=== PATIENT | male | born 1930 | race Caucasian/White ===

== ENCOUNTER 2017-09-18 12:34 | Inpatient (IN) | payer MEDICARE, BC ==
[2017-09-18] VITALS (7 sets, daily range): BP systolic 141–181; BP diastolic 65–82; PULSE 60–78; RESP 16–18; TEMP 98–98.8; O2SAT 96–99
[~2017-09-18] VITALS: Ht 170.2 cm; Wt 75.8 kg
[~2017-09-18 12:34] MED LIST: BISA10SU3 RECTAL; CLON0.2T PO; SENN8.8L PO
--- NOTE | 2017-09-18 12:58 | PD ---
HPI Chief Complaint: Fall Time Seen by Provider: 12:51 Travel History International Travel<30 days: No Contact w/Intl Traveler<30days: No Traveled to known affect area: No History of Present Illness HPI 86-year-old male with no significant medical history presents to emergency department following a fall that occurred today. Patient states that he was moving a chair when he stood up, he felt "in the clouds." He ended up falling backwards, striking his head. He states he did not lose consciousness. He is reporting posterior head pain where he sustained a laceration. He denies any other acute focal deficits or weakness. Denies any chest pain or tightness. No difficulty breathing. No recent illnesses, fever, or chills. He has no other symptoms to report. 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) Genitourinary Surgery: Yes (PROSTATE BIOPSY) Gynecologic Surgery: No Oral Surgery: Yes (TEETH REMOVAL) Thoracic Surgery: No Social History Alcohol Use: No Tobacco Use: No Substance Use: No Allergies-Medications (Allergen,Severity, Reaction): Coded Allergies: No Known Allergies (Unverified , 06/14/16) Reported Meds & Prescriptions Reported Meds & Active Scripts Active Zantac (Ranitidine HCl) 150 Mg/10 Ml Syrp 150 Mg PO Q12HR 30 Days Reported Acetaminophen 325 Mg Tab 650 Mg PO Q4H PRN 30 Days Bisacodyl Supp (Bisacodyl) 10 Mg Supp 10 Mg RECTAL DAILY PRN 30 Days Clonidine (Clonidine HCl) 0.2 Mg Tab 0.2 Mg PO Q6HR 30 Days Senexon Liq (Sennosides) 8.8 Mg/5 Ml Liq 8.8 Mg PO Q12HR 3 Days Review of Systems Except as stated in HPI: all other systems reviewed are Neg Physical Exam Narrative GENERAL: Well-nourished elderly male patient, sitting up in bed, in no acute distress SKIN: Focused skin assessment warm/dry. 4 cm well approximated laceration on the superior posterior scalp. Bleeding is controlled. HEAD: Atraumatic. Normocephalic. EYES: Pupils equal and round. No scleral icterus. No injection or drainage. EOMI ENT: No nasal bleeding or discharge. Mucous membranes pink and moist. NECK: Trachea midline. No JVD. No cervical spine tenderness to palpation. CARDIOVASCULAR: Regular rate and rhythm. RESPIRATORY: No accessory muscle use. Clear to auscultation. Breath sounds equal bilaterally. GASTROINTESTINAL: Abdomen soft, non-tender, nondistended. Hepatic and splenic margins not palpable. MUSCULOSKELETAL: No obvious deformities. No clubbing. No cyanosis. No edema. Equal strength bilateral extremities. No pronator drift. Sensation intact distal affected extremities. NEUROLOGICAL: Awake and alert. No obvious cranial nerve deficits. Motor grossly within normal limits. Normal speech. PSYCHIATRIC: Appropriate mood and affect; insight and judgment normal. Data Data Last Documented VS Vital Signs Date Time Temp Pulse Resp B/P (MAP) Pulse Ox O2 Delivery O2 Flow Rate FiO2 09/18/17 12:39 98.8 70 16 141/77 (98) 99 Orders Orders Electrocardiogram (09/18/17 12:59) Basic Metabolic Panel (Bmp) (09/18/17 12:59) Complete Blood Count With Diff (09/18/17 12:59) Ckmb (Isoenzyme) Profile (09/18/17 12:59) Troponin I (09/18/17 12:59) Act Partial Throm Time (Ptt) (09/18/17 12:59) Prothrombin Time / Inr (Pt) (09/18/17 12:59) Urinalysis - C+S If Indicated (09/18/17 12:59) Ct Brain W/O Iv Contrast(Rout) (09/18/17 12:59) Ct Cerv Spine W/O Contrast (09/18/17 12:59) Ecg Monitoring (09/18/17 12:59) Iv Access Insert/Monitor (09/18/17 12:59) Oximetry (09/18/17 12:59) Sodium Chloride 0.9% Flush (Ns Flush) (09/18/17 13:00) Sodium Chlor 0.9% 1000 Ml Inj (Ns 1000 M (09/18/17 12:59) Admit Order (Ed Use Only) (09/18/17 15:41) Consult Neurosurgery (09/18/17 ) Labs Laboratory Tests Test 09/18/17 13:20 09/18/17 14:00 White Blood Count 9.6 TH/MM3 Red Blood Count 4.02 MIL/MM3 Hemoglobin 13.2 GM/DL Hematocrit 39.4 % Mean Corpuscular Volume 98.2 FL Mean Corpuscular Hemoglobin 32.8 PG Mean Corpuscular Hemoglobin Concent 33.5 % Red Cell Distribution Width 18.7 % Platelet Count 811 TH/MM3 Mean Platelet Volume 8.3 FL Neutrophils (%) (Auto) 61.9 % Lymphocytes (%) (Auto) 25.2 % Monocytes (%) (Auto) 8.2 % Eosinophils (%) (Auto) 4.2 % Basophils (%) (Auto) 0.5 % Neutrophils # (Auto) 6.0 TH/MM3 Lymphocytes # (Auto) 2.4 TH/MM3 Monocytes # (Auto) 0.8 TH/MM3 Eosinophils # (Auto) 0.4 TH/MM3 Basophils # (Auto) 0.0 TH/MM3 CBC Comment DIFF FINAL Differential Comment Prothrombin Time 11.0 SEC Prothromb Time International Ratio 1.1 RATIO Activated Partial Thromboplast Time 25.1 SEC Blood Urea Nitrogen 12 MG/DL Creatinine 0.86 MG/DL Random Glucose 85 MG/DL Calcium Level 9.1 MG/DL Sodium Level 140 MEQ/L Potassium Level 4.0 MEQ/L Chloride Level 102 MEQ/L Carbon Dioxide Level 32.8 MEQ/L Anion Gap 5 MEQ/L Estimat Glomerular Filtration Rate 84 ML/MIN Total Creatine Kinase 43 U/L Troponin I LESS THAN 0.02 NG/ML Urine Color LIGHT-YELLOW Urine Turbidity CLEAR Urine pH 8.0 Urine Specific [place] 1.007 Urine Protein NEG mg/dL Urine Glucose (UA) NEG mg/dL Urine Ketones NEG mg/dL Urine Occult Blood NEG Urine Nitrite NEG Urine Bilirubin NEG Urine Urobilinogen LESS THAN 2.0 MG/DL Urine Leukocyte Esterase NEG Urine RBC LESS THAN 1 /hpf Urine WBC LESS THAN 1 /hpf Urine Mucus FEW /lpf Microscopic Urinalysis Comment CULT NOT INDICATED MDM Medical Decision Making Medical Screen Exam Complete: Yes Emergency Medical Condition: Yes Medical Record Reviewed: Yes Differential Diagnosis Syncope versus near syncope versus orthostatic hypotension versus head laceration versus abrasion versus intracranial hemorrhage Narrative Course 86-year-old male presents to the emergency department for evaluation following a fall. Patient appears without distress. He is a and O 3. He has no focal deficits or weakness. Patient does not want any pain medication at this time. Laboratory Tests Test 09/18/17 13:20 09/18/17 14:00 White Blood Count 9.6 TH/MM3 Red Blood Count 4.02 MIL/MM3 Hemoglobin 13.2 GM/DL Hematocrit 39.4 % Mean Corpuscular Volume 98.2 FL Mean Corpuscular Hemoglobin 32.8 PG Mean Corpuscular Hemoglobin Concent 33.5 % Red Cell Distribution Width 18.7 % Platelet Count 811 TH/MM3 Mean Platelet Volume 8.3 FL Neutrophils (%) (Auto) 61.9 % Lymphocytes (%) (Auto) 25.2 % Monocytes (%) (Auto) 8.2 % Eosinophils (%) (Auto) 4.2 % Basophils (%) (Auto) 0.5 % Neutrophils # (Auto) 6.0 TH/MM3 Lymphocytes # (Auto) 2.4 TH/MM3 Monocytes # (Auto) 0.8 TH/MM3 Eosinophils # (Auto) 0.4 TH/MM3 Basophils # (Auto) 0.0 TH/MM3 CBC Comment DIFF FINAL Differential Comment Prothrombin Time 11.0 SEC Prothromb Time International Ratio 1.1 RATIO Activated Partial Thromboplast Time 25.1 SEC Blood Urea Nitrogen 12 MG/DL Creatinine 0.86 MG/DL Random Glucose 85 MG/DL Calcium Level 9.1 MG/DL Sodium Level 140 MEQ/L Potassium Level 4.0 MEQ/L Chloride Level 102 MEQ/L Carbon Dioxide Level 32.8 MEQ/L Anion Gap 5 MEQ/L Estimat Glomerular Filtration Rate 84 ML/MIN Total Creatine Kinase 43 U/L Troponin I LESS THAN 0.02 NG/ML Urine Color LIGHT-YELLOW Urine Turbidity CLEAR Urine pH 8.0 Urine Specific [place] 1.007 Urine Protein NEG mg/dL Urine Glucose (UA) NEG mg/dL Urine Ketones NEG mg/dL Urine Occult Blood NEG Urine Nitrite NEG Urine Bilirubin NEG Urine Urobilinogen LESS THAN 2.0 MG/DL Urine Leukocyte Esterase NEG Urine RBC LESS THAN 1 /hpf Urine WBC LESS THAN 1 /hpf Urine Mucus FEW /lpf Microscopic Urinalysis Comment CULT NOT INDICATED Vital Signs Date Time Temp Pulse Resp B/P (MAP) Pulse Ox O2 Delivery O2 Flow Rate FiO2 09/18/17 12:39 98.8 70 16 141/77 (78) [address] 09/18/17 1259 Signed Impressions: Service Date/Time: Monday, September 18, 2017 14:23 - CONCLUSION: 1. There appears to be a tiny punctate hemorrhagic contusion high along the left cerebral vertex. 2. Diffuse bilateral cortical atrophy and chronic white matter changes. Guero Carrillo MD Cervical Spine CT 09/18/17 1259 Signed Impressions: Service Date/Time: Monday, September 18, 2017 14:24 - CONCLUSION: 1. No acute bony fracture. 2. Stable CT scan of the cervical spine compared to the prior examination. Guero Carrillo MD I have discussed the findings with my attending as well as the patient and his son who is at bedside. A call has been placed in neurosurgery. Laceration is repaired without difficulty. Procedures Procedure Narrative LACERATION LOCATION: Posterior scalp LENGTH: 3 cm NUMBER OF STITCHES/ROSSANA: 3 rossana REPAIR: The area of the laceration was prepped with Betadine and sterilely draped. The wound was copiously irrigated and explored without evidence of foreign body, tendon injury or neurovascular injury. The wound was closed using rossana. This was a single layer repair. A sterile dressing was applied. The patient was advised to keep the dressing clean and dry. Patient tolerated the procedure well. Diagnosis Primary Impression: Near syncope Additional Impression: ICH (intracerebral hemorrhage) Qualified Codes: S06.360A - Traumatic hemorrhage of cerebrum, unspecified, without loss of consciousness, initial encounter Admitting Information Admitting Physician Requests: Admit Condition: Stable Brenda De La O HECTOR Sep 18, 2017 12:58
[2017-09-18] MEDS ORDERED: SODIUM CHLOR 0.9% 1000 ML INJ 1,000 ML IV ONE (12:59)
[2017-09-18] MEDS ORDERED: SODIUM CHLORIDE 0.9% FLUSH 10 ML FLUSH IVF PRN (13:00)
[2017-09-18 13:39] LABS: BASOPHIL % 0.5 % (0.0-2.0); EOSINOPHIL # 0.4 TH/MM3 (0-0.4); EOSINOPHIL % 4.2 % (0.0-4.0); HEMATOCRIT 39.4 % (39.0-51.0); HEMO FLAGS DIFF FINAL; LYMPH % 25.2 % (9.0-44.0); LYMPHOCYTE # 2.4 TH/MM3 (1.0-4.8); MEAN CELL VOLUME 98.2 FL (80.0-100.0); MEAN CORPUSCULAR HEMOGLOBIN 32.8 PG (27.0-34.0); MEAN CORPUSCULAR HGB CONC 33.5 % (32.0-36.0); MONO % 8.2 % (0.0-8.0); NEUT % 61.9 % (16.0-70.0); PLATELET COUNT 811 TH/MM3 (150-450); RED BLOOD COUNT 4.02 MIL/MM3 (4.50-5.90); RED CELL DISTRIBUTION WIDTH 18.7 % (11.6-17.2); WHITE BLOOD COUNT 9.6 TH/MM3 (4.0-11.0)
[2017-09-18 13:53] LABS: APTT (PATIENT) 25.1 SEC (24.3-30.1); INTERNATIONAL NORMALIZED RATIO 1.1 RATIO
[2017-09-18 13:55] LABS: ANION GAP 5 MEQ/L (5-15); BICARBONATE 32.8 MEQ/L (21.0-32.0); BLOOD UREA NITROGEN 12 MG/DL (7-18); CHLORIDE 102 MEQ/L (98-107); GLOMERULAR FILTRATION RATE 84 ML/MIN (>89); SODIUM (NA) 140 MEQ/L (136-145)
[2017-09-18 14:00] LABS: CREATINE KINASE 43 U/L (39-308)
[2017-09-18 14:25] LABS: BLOOD, URINE NEG (NEG); COMMENT (UR) CULT NOT INDICATED; CULTURE IF INDICATED CULT NOT INDICATED; GLUCOSE,URINE NEG (NEG); KETONE, URINE NEG (NEG); MUCUS URINE FEW /lpf (OCC); NITRITE,URINE NEG (NEG); URINE COLOR LIGHT-YELLOW (YELLW/STRAW)
--- NOTE | 2017-09-18 14:58 | RADRPT ---
EXAM DATE/TIME: 09/18/2017 14:23 [facility] COMPARISON: CT BRAIN W/O CONTRAST, June 15, 2016, 4:39. INDICATIONS : Trauma, fall. Laceration to posterior head. RADIATION DOSE: 56.35 CTDIvol (mGy) MEDICAL HISTORY : None SURGICAL HISTORY : Craniotomy. ENCOUNTER: Initial ACUITY: 1 day PAIN SCALE: 0/10 LOCATION: Bilateral head TECHNIQUE: Multiple contiguous axial images were obtained of the head. Using automated exposure control and adj ustment of the mA and/or kV according to patient size, radiation dose was kept as low as reasonably a chievable to obtain optimal diagnostic quality images. DICOM format image data is available electro nically for review and comparison. FINDINGS: CEREBRUM: There appears to be a tiny punctate hemorrhagic contusion high along the left cerebral vertex. There is bilateral cortical atrophy and chronic white matter changes bilaterally. The ventricles are within normal limits for size. There is no mass effect or midline shift. POSTERIOR FOSSA: The cerebellum and brainstem are intact. The 4th ventricle is midline. The cerebellopontine angle i s unremarkable. EXTRACRANIAL: The visualized portion of the orbits is intact. There is scalp soft tissue swelling over the posterio r right occipital region. SKULL: The calvaria is intact. No evidence of skull fracture. There is evidence of previous left-sided cran iotomy. CONCLUSION: 1. There appears to be a tiny punctate hemorrhagic contusion high along the left cerebral vertex. 2. Diffuse bilateral cortical atrophy and chronic white matter changes. Guero Carrillo MD on September 18, 2017 at 14:53 Board Certified Radiologist. This report was verified electronically.
--- NOTE | 2017-09-18 15:08 | RADRPT ---
EXAM DATE/TIME: 09/18/2017 14:24 [facility] COMPARISON: CT CERVICAL SPINE W/O CONTRAST, June 14, 2016, 10:41. INDICATIONS : Trauma, fall today. Laceration to posterior head. RADIATION DOSE: 35.06 CTDIvol (mGy) MEDICAL HISTORY : None SURGICAL HISTORY : Craniotomy. ENCOUNTER: Initial ACUITY: 1 day PAIN SCALE: 0/10 LOCATION: Bilateral neck TECHNIQUE: Volumetric scanning of the cervical spine was performed. Multiplanar reconstructions in the sagittal, coronal and oblique axial planes were performed. Using automated exposure control and adjustment o f the mA and/or kV according to patient size, radiation dose was kept as low as reasonably achievable to obtain optimal diagnostic quality images. DICOM format image data is available electronically f or review and comparison. FINDINGS: Today's exam is compared to the prior study. The bony structures are grossly intact. No acute bony fr acture. There is stable primary degenerative changes throughout the cervical spine. No evidence of galvez bluxation or spondylolisthesis. There's been no significant changes with the overall appearance hannah red to prior exam. There is a mild central bulging at C4-5. Otherwise, no significant ventral defects are seen. CONCLUSION: 1. No acute bony fracture. 2. Stable CT scan of the cervical spine compared to the prior examination. Guero Carrillo MD on September 18, 2017 at 15:04 Board Certified Radiologist. This report was verified electronically.
--- NOTE | 2017-09-18 15:17 | PD ---
Data Data Last Documented VS Vital Signs Date Time Temp Pulse Resp B/P (MAP) Pulse Ox O2 Delivery O2 Flow Rate FiO2 09/18/17 12:39 98.8 70 16 141/77 (98) 99 Orders Orders Electrocardiogram (09/18/17 12:59) Basic Metabolic Panel (Bmp) (09/18/17 12:59) Complete Blood Count With Diff (09/18/17 12:59) Ckmb (Isoenzyme) Profile (09/18/17 12:59) Troponin I (09/18/17 12:59) Act Partial Throm Time (Ptt) (09/18/17 12:59) Prothrombin Time / Inr (Pt) (09/18/17 12:59) Urinalysis - C+S If Indicated (09/18/17 12:59) Ct Brain W/O Iv Contrast(Rout) (09/18/17 12:59) Ct Cerv Spine W/O Contrast (09/18/17 12:59) Ecg Monitoring (09/18/17 12:59) Iv Access Insert/Monitor (09/18/17 12:59) Oximetry (09/18/17 12:59) Sodium Chloride 0.9% Flush (Ns Flush) (09/18/17 13:00) Sodium Chlor 0.9% 1000 Ml Inj (Ns 1000 M (09/18/17 12:59) Admit Order (Ed Use Only) (09/18/17 15:41) Consult Neurosurgery (09/18/17 ) Labs Laboratory Tests Test 09/18/17 13:20 09/18/17 14:00 White Blood Count 9.6 TH/MM3 Red Blood Count 4.02 MIL/MM3 Hemoglobin 13.2 GM/DL Hematocrit 39.4 % Mean Corpuscular Volume 98.2 FL Mean Corpuscular Hemoglobin 32.8 PG Mean Corpuscular Hemoglobin Concent 33.5 % Red Cell Distribution Width 18.7 % Platelet Count 811 TH/MM3 Mean Platelet Volume 8.3 FL Neutrophils (%) (Auto) 61.9 % Lymphocytes (%) (Auto) 25.2 % Monocytes (%) (Auto) 8.2 % Eosinophils (%) (Auto) 4.2 % Basophils (%) (Auto) 0.5 % Neutrophils # (Auto) 6.0 TH/MM3 Lymphocytes # (Auto) 2.4 TH/MM3 Monocytes # (Auto) 0.8 TH/MM3 Eosinophils # (Auto) 0.4 TH/MM3 Basophils # (Auto) 0.0 TH/MM3 CBC Comment DIFF FINAL Differential Comment Prothrombin Time 11.0 SEC Prothromb Time International Ratio 1.1 RATIO Activated Partial Thromboplast Time 25.1 SEC Blood Urea Nitrogen 12 MG/DL Creatinine 0.86 MG/DL Random Glucose 85 MG/DL Calcium Level 9.1 MG/DL Sodium Level 140 MEQ/L Potassium Level 4.0 MEQ/L Chloride Level 102 MEQ/L Carbon Dioxide Level 32.8 MEQ/L Anion Gap 5 MEQ/L Estimat Glomerular Filtration Rate 84 ML/MIN Total Creatine Kinase 43 U/L Troponin I LESS THAN 0.02 NG/ML Urine Color LIGHT-YELLOW Urine Turbidity CLEAR Urine pH 8.0 Urine Specific [place] 1.007 Urine Protein NEG mg/dL Urine Glucose (UA) NEG mg/dL Urine Ketones NEG mg/dL Urine Occult Blood NEG Urine Nitrite NEG Urine Bilirubin NEG Urine Urobilinogen LESS THAN 2.0 MG/DL Urine Leukocyte Esterase NEG Urine RBC LESS THAN 1 /hpf Urine WBC LESS THAN 1 /hpf Urine Mucus FEW /lpf Microscopic Urinalysis Comment CULT NOT INDICATED MDM Medical Record Reviewed: Yes Supervised Visit with KHADIJAH: Yes Narrative Course I, Dr. Martinez, have reviewed the advance practice practitioner's documentation and am in agreement, met with the patient face to face, made the diagnosis, and the medical decision making was done by me. *My assessment and Findings: CBC & BMP Diagram 09/18/17 13:20 Calcium Level 9.[address] 09/18/17 1259 Signed Impressions: Service Date/Time: Monday, September 18, 2017 14:23 - CONCLUSION: 1. There appears to be a tiny punctate hemorrhagic contusion high along the left cerebral vertex. 2. Diffuse bilateral cortical atrophy and chronic white matter changes. Guero Carrillo MD Cervical Spine CT 09/18/17 1259 Signed Impressions: Service Date/Time: Monday, September 18, 2017 14:24 - CONCLUSION: 1. No acute bony fracture. 2. Stable CT scan of the cervical spine compared to the prior examination. Guero Carrillo MD Case discussed with Dr. Cortez of neurosurgery Pt will be admitted to [facility] for monitoring with plan for repeat head CT tomorrow Scripts No Active Prescriptions or Reported Meds Condition: Stable Elan Martinez MD Sep 18, 2017 15:17
[2017-09-18] MEDS ORDERED: ACETAMINOPHEN 325 MG TAB PO PRN (15:45)
[2017-09-18] MEDS ORDERED: POTASSIUM CHLOR 20 MEQ PREMIX 100 ML IV PRN ×2 (15:45)
[2017-09-18] MEDS ORDERED: MISCELLANEOUS NURSING INFORMATION XX SCH (15:45)
[2017-09-18] MEDS ORDERED: MAGNESIUM OXIDE 400 MG TAB PO PRN (15:45)
[2017-09-18] MEDS ORDERED: MAGNESIUM SULFATE INJ 4 GM in SODIUM CHLORIDE 0.9% INJ 92 ML IV PRN (15:45)
[2017-09-18] MEDS ORDERED: MAGNESIUM SULFATE INJ 2 GM in SODIUM CHLORIDE 0.9% INJ 96 ML IV PRN (15:45)
[2017-09-18] MEDS ORDERED: hydrALAZINE HCL 20 MG/ML VIAL IV PUSH PRN (15:45)
[2017-09-18] MEDS ORDERED: POTASSIUM PHOSPHATE INJ 30 MMOL in SODIUM CHLOR 0.9% 250 ML INJ 250 ML IV PRN (15:45)
[2017-09-18] MEDS ORDERED: SODIUM PHOSPHATE INJ 30 MMOL in SODIUM CHLOR 0.9% 250 ML INJ 240 ML IV PRN (15:45)
[2017-09-18] MEDS ORDERED: CHLORHEXIDINE GLUCONATE 2 % 1 PACK (2 CLOTHS) TOP PRN (15:45)
[2017-09-18] MEDS ORDERED: RESP: ALBUTEROL 2.5 MG/IPRATROPIUM 0.5 MG NEB (PRN) INH (15:45)
[2017-09-18] MEDS ORDERED: ONDANSETRON HCL 4 MG/2 ML VIAL IV PUSH PRN (15:45)
[2017-09-18] MEDS ORDERED: LABETALOL HCL 100 MG/20 ML VIAL IV PUSH PRN (15:45)
[2017-09-18] MEDS ORDERED: DEXTROSE 50% IN WATER 50 ML VIAL(D50) IV PUSH PRN (15:45)
[2017-09-18] MEDS ORDERED: POTASSIUM CHLOR 40 MEQ PREMIX 100 ML IV PRN ×2 (15:45)
[2017-09-18] MEDS ORDERED: POTASSIUM PHOSPHATE MONOBASIC 500 MG TAB PO/TUBE PRN (15:45)
[2017-09-18] MEDS ORDERED: POTASSIUM PHOSPHATE MONOBASIC 500 MG TAB PO PRN (15:45)
--- NOTE | 2017-09-18 16:01 | HHI.HP ---
[facility] Service Critical Care Medicine Primary Care Physician Unknown Admission Diagnosis Diagnosis: Chief Complaint: headache Travel History International Travel<30 Days: No Contact w/Intl Traveler <30 Da: No Traveled to Known Affected Are: No History of Present Illness This is an 86-year-old male with no significant past medical history who presents after a mechanical fall. He was trying to move his recliner and slipped and fell and hit his head. He denies any symptoms other than headache. He does state that he had a prior brain bleed a year ago for which she was admitted to the ICU. In the emergency department CAT scan of head was notable for a very tiny traumatic intraparenchymal hemorrhage. He is noted to the ICU for close monitoring. The patient denies any symptoms of nausea, vomiting, blurry vision, visual changes, weakness, numbness. His only symptom is headache. Review of systems is otherwise negative. Review of Systems Constitutional: DENIES: Diaphoretic episodes, Fatigue, Fever, Weight gain, Weight loss, Chills, Dizziness, Change in appetite, Night Sweats Endocrine: DENIES: Heat/cold intolerance, Polydipsia, Polyuria, Polyphagia Eyes: DENIES: Blurred vision, Diplopia, Eye inflammation, Eye pain, Vision loss , Photosensitivity, Double Vision Ears, nose, mouth, throat: DENIES: Tinnitus, Hearing loss, Vertigo, Nasal discharge, Oral lesions, Throat pain, Hoarseness, Ear Pain, Running Nose, Epistaxis, Sinus Pain, Toothache, Odynophagia Respiratory: DENIES: Apneas, Cough, Snoring, Wheezing, Hemoptysis, Sputum production, Shortness of breath Cardiovascular: DENIES: Chest pain, Palpitations, Syncope, Dyspnea on Exertion , PND, Lower Extremity Edema, Orthopnea, Claudication Gastrointestinal: DENIES: Abdominal pain, Black stools, Bloody stools, Constipation, Diarrhea, Nausea, Vomiting, Difficulty Swallowing, Anorexia Genitourinary: DENIES: Sexual dysfunction, Urinary frequency, Urinary incontinence, Urgency, Hematuria, Dysuria, Nocturia, Penile Discharge, Testicular Pain, Testicular Swelling Musculoskeletal: DENIES: Joint pain, Muscle aches, Stiffness, Joint Swelling, Back pain, Neck pain Integumentary: DENIES: Abnormal pigmentation, Nail changes, Pruritus, Rash Hematologic/lymphatic: DENIES: Bruising, Lymphadenopathy Immunologic/allergic: DENIES: Eczema, Urticaria Neurologic: COMPLAINS OF: Headache, DENIES: Abnormal gait, Localized weakness, Paresthesias, Seizures, Speech Problems, Tremor, Poor Balance Psychiatric: DENIES: Anxiety, Confusion, Mood changes, Depression, Hallucinations, Agitation, Suicidal Ideation, Homicidal Ideation, Delusions Past Family Social History Allergies: Coded Allergies: No Known Allergies (Unverified , 06/14/16) Past Medical History Arthritis Prior intraparenchymal hemorrhage one year ago Past Surgical History Prostate biopsy Teeth removal Reported Medications Zantac (Ranitidine HCl) 150 Mg/10 Ml Syrp 150 Mg PO Q12HR 30 Days Acetaminophen 325 Mg Tab 650 Mg PO Q4H PRN 30 Days Bisacodyl Supp (Bisacodyl) 10 Mg Supp 10 Mg RECTAL DAILY PRN 30 Days Clonidine (Clonidine HCl) 0.2 Mg Tab 0.2 Mg PO Q6HR 30 Days Senexon Liq (Sennosides) 8.8 Mg/5 Ml Liq 8.8 Mg PO Q12HR 3 Days Active Ordered Medications See MAR Family History reviewed and found to be noncontributory to his acute illness. Social History denies tob, etoh, doa. Physical Exam Vital Signs Vital Signs Date Time Temp Pulse Resp B/P (MAP) Pulse Ox O2 Delivery O2 Flow Rate FiO2 09/18/17 12:39 98.8 70 16 141/77 (98) 99 Physical Exam GENERAL: Elderly male, lying in bed, no acute distress HEENT: Normocephalic. Atraumatic. Pupils equal, round, reactive, conjugate. Mucous membranes are moist NECK: Trachea is midline. There is no JVD. CHEST: Unlabored. Room air. CARDIOVASCULAR: Normal rate, regular rhythm. ABDOMEN: Soft, nontender, nondistended. No guarding. MUSCULOSKELETAL: Pulses 2+. No peripheral edema. NEUROLOGICAL: Resting her. GCS 15. No focal deficits. Musculoskeletal strength 5 out of 5 in all 4 extremities. Sensation grossly intact Laboratory Laboratory Tests Test 09/18/17 13:20 09/18/17 14:00 White Blood Count 9.6 Red Blood Count 4.02 Hemoglobin 13.2 Hematocrit 39.4 Mean Corpuscular Volume 98.2 Mean Corpuscular Hemoglobin 32.8 Mean Corpuscular Hemoglobin Concent 33.5 Red Cell Distribution Width 18.7 Platelet Count 811 Mean Platelet Volume 8.3 Neutrophils (%) (Auto) 61.9 Lymphocytes (%) (Auto) 25.2 Monocytes (%) (Auto) 8.2 Eosinophils (%) (Auto) 4.2 Basophils (%) (Auto) 0.5 Neutrophils # (Auto) 6.0 Lymphocytes # (Auto) 2.4 Monocytes # (Auto) 0.8 Eosinophils # (Auto) 0.4 Basophils # (Auto) 0.0 CBC Comment DIFF FINAL Differential Comment Prothrombin Time 11.0 Prothromb Time International Ratio 1.1 Activated Partial Thromboplast Time 25.1 Blood Urea Nitrogen 12 Creatinine 0.86 Random Glucose 85 Calcium Level 9.1 Sodium Level 140 Potassium Level 4.0 Chloride Level 102 Carbon Dioxide Level 32.8 Anion Gap 5 Estimat Glomerular Filtration Rate 84 Total Creatine Kinase 43 Troponin I LESS THAN 0.02 Urine Color LIGHT-YELLOW Urine Turbidity CLEAR Urine pH 8.0 Urine Specific [place] 1.007 Urine Protein NEG Urine Glucose (UA) NEG Urine Ketones NEG Urine Occult Blood NEG Urine Nitrite NEG Urine Bilirubin NEG Urine Urobilinogen LESS THAN 2.0 Urine Leukocyte Esterase NEG Urine RBC LESS THAN 1 Urine WBC LESS THAN 1 Urine Mucus FEW Microscopic Urinalysis Comment CULT NOT INDICATED Result Diagram: 09/18/17 1320 09/18/17 1320 Imaging Last Impressions Head CT 09/18/17 1259 Signed Impressions: Service Date/Time: Monday, September 18, 2017 14:23 - CONCLUSION: 1. There appears to be a tiny punctate hemorrhagic contusion high along the left cerebral vertex. 2. Diffuse bilateral cortical atrophy and chronic white matter changes. Guero Carrillo MD Cervical Spine CT 09/18/17 1259 Signed Impressions: Service Date/Time: Monday, September 18, 2017 14:24 - CONCLUSION: 1. No acute bony fracture. 2. Stable CT scan of the cervical spine compared to the prior examination. Guero Carrillo MD Caprini VTE Risk Assessment Caprini VTE Risk Assessment: Mod/High Risk (score >= 2) VTE Pharm Contraindication: Intracranial lesions Caprini Risk Assessment Model Point Value = 1 Point Value = 2 Point Value = 3 Point Value = 5 Age 41-60 Minor surgery BMI > 25 kg/m2 Swollen legs Varicose veins or History of unexplained or recurrent spontaneous Oral contraceptives or hormone replacement Sepsis (< 1 month) Serious lung disease, including pneumonia (< 1 month) Abnormal pulmonary function Acute myocardial infarction Congestive heart failure (< 1 month) History of inflammatory bowel disease Medical patient at bed rest Age 61-74 Arthroscopic surgery Major open surgery (> 45 min) Laparoscopic surgery (> 45 min) Malignancy Confined to bed (> 72 hours) Immobilizing plaster cast Central venous access Age >= 75 History of VTE Family history of VTE Factor V Leiden Prothrombin [id number] Lupus anticoagulant Anticardiolipin antibodies Elevated serum homocysteine Heparin-induced thrombocytopenia Other congenital or acquired thrombophilia Stroke (< 1 month) Elective arthroplasty Hip, pelvis, or leg fracture Acute spinal cord injury (< 1 month) Prophylaxis Regimen Total Risk Factor Score Risk Level Prophylaxis Regimen 0-1 Low Early ambulation 2 Moderate Order ONE of the following: *Sequential Compression Device (SCD) *Heparin 5000 units SQ BID 3-4 Higher Order ONE of the following medications: *Heparin 5000 units SQ TID *Enoxaparin/Lovenox 40 mg SQ daily (WT < 150 kg, CrCl > 30 mL/min) *Enoxaparin/Lovenox 30 mg SQ daily (WT < 150 kg, CrCl > 10-29 mL/min) *Enoxaparin/Lovenox 30 mg SQ BID (WT < 150 kg, CrCl > 30 mL/min) AND/OR *Sequential Compression Device (SCD) 5 or more Highest Order ONE of the following medications: *Heparin 5000 units SQ TID (Preferred with Epidurals) *Enoxaparin/Lovenox 40 mg SQ daily (WT < 150 kg, CrCl > 30 mL/min) *Enoxaparin/Lovenox 30 mg SQ daily (WT < 150 kg, CrCl > 10-29 mL/min) *Enoxaparin/Lovenox 30 mg SQ BID (WT < 150 kg, CrCl > 30 mL/min) AND *Sequential Compression Device (SCD) Assessment and Plan Assessment and Plan Assessment: 86yM with relatively unremarkable past medical history presents after mechanical fall with tiny acute intraparenchymal hemorrhage, traumatic in nature. frequent neuro checks in ICU with repeat interval head CT. Traumatic intraparenchymal hemorrhage - frequent neuro checks - repeat head CT tomorrow - swallow eval prior to advancing diet - PT consult tomorrow SCDs advance diet after swallow eval restart home meds dispo: admit to ICU. Good Javed MD Sep 18, 2017 16:01
[2017-09-18] MEDS: INSULIN NovoLIN REGULAR SUPPLEMENTAL SCALE SQ SCH ×2 (17:00→21:00)
--- NOTE | 2017-09-18 17:14 | PD.CONS ---
History of Present Illness Service Neurosurgery Consult Requested By Reason for Consult Intracerebral hemorrhage Primary Care Physician Unknown Diagnoses: History of Present Illness Mr Larsen is an 86-year-old gentleman who presented to the emergency department following a ground-level fall. He was trying to get himself up from a chair. He lost his footing and fell backwards. He struck his head on the back of a chair. There is no loss of consciousness. He immediately felt pain to the back of his head. He sustained a laceration to the back of his scalp. He was brought to the emergency department where a head CT showed evidence of a punctate 2 mm hemorrhage in the left frontal cortex. Currently the patient complains of headache to his scalp laceration. Review of Systems Constitutional: DENIES: Fatigue, Dizziness Eyes: DENIES: Blurred vision, Diplopia, Double Vision Cardiovascular: DENIES: Chest pain, Palpitations, Syncope Neurologic: COMPLAINS OF: Headache, DENIES: Abnormal gait, Poor Balance Psychiatric: DENIES: Confusion Except as stated in HPI: all other systems reviewed are Neg Past Family Social History Allergies: Coded Allergies: No Known Allergies (Unverified , 06/14/16) Past Medical History Noncontributory Past Surgical History Patient had surgery in the remote past but does not recall Reported Medications Multivitamin Family History Noncontributory Physical Exam Vital Signs Vital Signs Date Time Temp Pulse Resp B/P (MAP) Pulse Ox O2 Delivery O2 Flow Rate FiO2 09/18/17 12:39 98.8 70 16 141/77 (98) 99 Physical Exam GENERAL: This is a well-nourished, well-developed patient, in no apparent distress. HEENT: Head is normocephalic. There is a laceration to the parietal vertex. Loyda are in place. There is surrounding erythema and dried blood. Neck: Supple. No tenderness to palpation. No step-offs. CV: Regular rate Pulm: Symmetric expansion. Breath sounds bilaterally. GI: Abdomen is soft, nontender nondistended Extremity: No edema Neuro: Patient is alert and oriented 3. Speech is clear, appropriate, non- aphasic. He is a good historian. Cranial nerves II through XII are grossly intact. Motor strength testing reveal full strength 5/5 to all muscle groups tested. Sensation is grossly intact to light touch throughout. Deep tendon reflexes are 2+ at the patella. No clonus at the ankles. No pronator drift. Laboratory Laboratory Tests Test 09/18/17 13:20 09/18/17 14:00 White Blood Count 9.6 Red Blood Count 4.02 Hemoglobin 13.2 Hematocrit 39.4 Mean Corpuscular Volume 98.2 Mean Corpuscular Hemoglobin 32.8 Mean Corpuscular Hemoglobin Concent 33.5 Red Cell Distribution Width 18.7 Platelet Count 811 Mean Platelet Volume 8.3 Neutrophils (%) (Auto) 61.9 Lymphocytes (%) (Auto) 25.2 Monocytes (%) (Auto) 8.2 Eosinophils (%) (Auto) 4.2 Basophils (%) (Auto) 0.5 Neutrophils # (Auto) 6.0 Lymphocytes # (Auto) 2.4 Monocytes # (Auto) 0.8 Eosinophils # (Auto) 0.4 Basophils # (Auto) 0.0 CBC Comment DIFF FINAL Differential Comment Prothrombin Time 11.0 Prothromb Time International Ratio 1.1 Activated Partial Thromboplast Time 25.1 Blood Urea Nitrogen 12 Creatinine 0.86 Random Glucose 85 Calcium Level 9.1 Sodium Level 140 Potassium Level 4.0 Chloride Level 102 Carbon Dioxide Level 32.8 Anion Gap 5 Estimat Glomerular Filtration Rate 84 Total Creatine Kinase 43 Troponin I LESS THAN 0.02 Urine Color LIGHT-YELLOW Urine Turbidity CLEAR Urine pH 8.0 Urine Specific [place] 1.007 Urine Protein NEG Urine Glucose (UA) NEG Urine Ketones NEG Urine Occult Blood NEG Urine Nitrite NEG Urine Bilirubin NEG Urine Urobilinogen LESS THAN 2.0 Urine Leukocyte Esterase NEG Urine RBC LESS THAN 1 Urine WBC LESS THAN 1 Urine Mucus FEW Microscopic Urinalysis Comment CULT NOT INDICATED Result Diagram: 09/18/17 1320 09/18/17 1320 Imaging Last [address] 09/18/17 1259 Signed Impressions: Service Date/Time: Monday, September 18, 2017 14:23 - CONCLUSION: 1. There appears to be a tiny punctate hemorrhagic contusion high along the left cerebral vertex. 2. Diffuse bilateral cortical atrophy and chronic white matter changes. Guero Carrillo MD Cervical Spine CT 09/18/17 1254 Signed Impressions: Service Date/Time: Monday, September 18, 2017 14:24 - CONCLUSION: 1. No acute bony fracture. 2. Stable CT scan of the cervical spine compared to the prior examination. Guero Carrillo MD Assessment and Plan Problem List: (1) ICH (intracerebral hemorrhage) ICD Codes: I61.9 - Nontraumatic intracerebral hemorrhage, unspecified Status: Acute Assessment and Plan Mr Larsen is an 86-year-old otherwise healthy male who presents following a ground-level fall. Neurologically the patient is intact. He has a scalp laceration that has been primarily repaired. He has a punctate 2 mm intracerebral hemorrhage involving the left frontal supplemental motor cortex. This is asymptomatic. Given the small size, we do not feel that he requires any antiepileptic or intervention. We recommend a repeat head CT in 24 hours. If there is resolution of the hemorrhage, he can be discharged following PT/OT assessment. No further neurosurgical intervention is required. Thank you for the consultation and the opportunity to participate in the care of your patient. Problem Qualifiers (1) ICH (intracerebral hemorrhage): Qualified Codes: S06.360A - Traumatic hemorrhage of cerebrum, unspecified, without loss of consciousness, initial encounter Jeremy Cortez MD Sep 18, 2017 17:14
[2017-09-18] MEDS: SODIUM CHLOR 0.9% 1000 ML INJ 1,000 ML IV SCH (17:31)
[2017-09-18] MEDS ORDERED: hydrALAZINE HCL 50 MG TAB PO PRN (19:30)
[2017-09-18] MEDS: DOCUSATE SODIUM 50 MG/SENNA 8.6 MG TAB PO SCH (20:27)
[2017-09-18] MEDS: LACTULOSE SYRUP 20 GM/30 ML CUP PO SCH (20:27)
[2017-09-18] MEDS: POLYETHYLENE GLYCOL 17 GM PKG PO SCH (20:27)
[2017-09-19] VITALS (7 sets, daily range): BP systolic 133–162; BP diastolic 62–74; PULSE 57–66; RESP 16–22; TEMP 98–98.2; O2SAT 94–98
[2017-09-19] MEDS: INSULIN NovoLIN REGULAR SUPPLEMENTAL SCALE SQ SCH ×2 (03:00→08:00)
[2017-09-19] MEDS ORDERED: CHLORHEXIDINE GLUCONATE 2 % 1 PACK (2 CLOTHS) TOP SCH (04:00)
[2017-09-19] MEDS: SODIUM CHLOR 0.9% 1000 ML INJ 1,000 ML IV SCH (04:00)
[2017-09-19 05:21] LABS: HEMATOCRIT 35.9 % (39.0-51.0); MEAN CELL VOLUME 98.7 FL (80.0-100.0); MEAN CORPUSCULAR HEMOGLOBIN 33.1 PG (27.0-34.0); MEAN CORPUSCULAR HGB CONC 33.6 % (32.0-36.0); PLATELET COUNT 711 TH/MM3 (150-450); RED BLOOD COUNT 3.64 MIL/MM3 (4.50-5.90); RED CELL DISTRIBUTION WIDTH 18.9 % (11.6-17.2); REVIEW FLAG FINAL; WHITE BLOOD COUNT 10.1 TH/MM3 (4.0-11.0)
--- NOTE | 2017-09-19 05:21 | RADRPT ---
EXAM DATE/TIME: 09/19/2017 05:05 [place] COMPARISON: CT BRAIN W/O CONTRAST, September 18, 2017, 14:23. INDICATIONS : Follow up trauma; punctate bleed. RADIATION DOSE: 44.97 CTDIvol (mGy) MEDICAL HISTORY : Non-responsive. SURGICAL HISTORY : Non-responsive. ENCOUNTER: Subsequent ACUITY: 1 day PAIN SCALE: Non-responsive LOCATION: cranial TECHNIQUE: Multiple contiguous axial images were obtained of the head. Using automated exposure control and adj ustment of the mA and/or kV according to patient size, radiation dose was kept as low as reasonably a chievable to obtain optimal diagnostic quality images. DICOM format image data is available electro nically for review and comparison. FINDINGS: There is mild atrophy and moderate periventricular white matter disease. Remote right parietal infarc t. A small focus of hemorrhage seen on the previous study is not clearly seen on the current exam. No fractures. Postsurgical changes of the left frontal calvarium identified. CONCLUSION: Tiny left frontal parenchymal bleed is not visualized on the current study. Antwan Cheng MD on September 19, 2017 at 5:19 Board Certified Radiologist. This report was verified electronically.
[2017-09-19 06:01] LABS: BICARBONATE 28.5 MEQ/L (21.0-32.0); POTASSIUM 3.8 MEQ/L (3.5-5.1)
[2017-09-19] MEDS: LACTULOSE SYRUP 20 GM/30 ML CUP PO SCH (08:28)
[2017-09-19] MEDS: DOCUSATE SODIUM 50 MG/SENNA 8.6 MG TAB PO SCH (08:28)
[2017-09-19] MEDS: POLYETHYLENE GLYCOL 17 GM PKG PO SCH (08:28)
[2017-09-19] MEDS ORDERED: BISACODYL 10 MG SUPP RECTAL SCH (09:00)
--- NOTE | 2017-09-19 09:39 | HHI.CCPN ---
Subjective Remarks/Hospital Course Hospital Course: This is an 86-year-old male with no significant past medical history who presents after a mechanical fall. He was trying to move his recliner and slipped and fell and hit his head. He denies any symptoms other than headache. He does state that he had a prior brain bleed a year ago for which she was admitted to the ICU. In the emergency department CAT scan of head was notable for a very tiny traumatic intraparenchymal hemorrhage. He is noted to the ICU for close monitoring. The patient denies any symptoms of nausea, vomiting, blurry vision, visual changes, weakness, numbness. His only symptom is headache. Review of systems is otherwise negative. Subjective: 09/19: denies complaints. tolerated diet. PT recommended outpatient PT with home health. ROS negative. headache improved. Objective Vital Signs Date Time Temp Pulse Resp B/P (MAP) Pulse Ox O2 Delivery O2 Flow Rate FiO2 09/19/17 06:00 60 09/19/17 04:00 98.2 16 161/72 (101) 95 09/18/17 21:22 21 09/18/17 17:54 Room Air Intake and Output 09/19/17 09/19/17 09/20/17 08:00 16:00 00:00 Intake Total 1085 ml Output Total 875 ml Balance 210 ml Result Diagram: 09/19/1740909/19/17409 Imaging Last Impressions Head CT 09/18/179 Signed Impressions: Service Date/Time: Monday, September 18, 2017 14:23 - CONCLUSION: 1. There appears to be a tiny punctate hemorrhagic contusion high along the left cerebral vertex. 2. Diffuse bilateral cortical atrophy and chronic white matter changes. Guero Carrillo MD Cervical Spine CT 09/18/17 3219 Signed Impressions: Service Date/Time: Monday, September 18, 2017 14:24 - CONCLUSION: 1. No acute bony fracture. 2. Stable CT scan of the cervical spine compared to the prior examination. Guero Carrillo MD Objective Remarks GENERAL: Elderly male, lying in bed, no acute distress HEENT: Normocephalic. Pupils equal, round, reactive, conjugate. Mucous membranes are moist NECK: Trachea is midline. There is no JVD. CHEST: Unlabored. Room air. CARDIOVASCULAR: Normal rate, regular rhythm. ABDOMEN: Soft, nontender, nondistended. No guarding. MUSCULOSKELETAL: Pulses 2+. No peripheral edema. NEUROLOGICAL: Resting her. GCS 15. No focal deficits. Musculoskeletal strength 5 out of 5 in all 4 extremities. Sensation grossly intact A/P Assessment and Plan Assessment: 86yM with relatively unremarkable past medical history presents after mechanical fall with tiny acute intraparenchymal hemorrhage, traumatic in nature. stable x 24h. safe to discharge home with outpatient physical therapy. patient feels safe to discharge home. Traumatic intraparenchymal hemorrhage - stable. - repeat head CT without evidence of enlargement. -PT recommending home PT. SCDs dispo: discharge home. Good Javed MD Sep 19, 2017 09:39
--- NOTE | 2017-09-19 09:46 | HHI.DS ---
Discharge Summary Admission Date Sep 18, 2017 at 15:44 Discharge Date: Sep 19, 2017 Admitting Diagnosis Acute traumatic intraparenchymal hemorrhage (1) Intraparenchymal hemorrhage of brain ICD Code: I61.9 - Nontraumatic intracerebral hemorrhage, unspecified Diagnosis: Principal Status: Acute Brief History This is an 86-year-old male with no significant past medical history who presents after a mechanical fall. He was trying to move his recliner and slipped and fell and hit his head. He denies any symptoms other than headache. He does state that he had a prior brain bleed a year ago for which she was admitted to the ICU. In the emergency department CAT scan of head was notable for a very tiny traumatic intraparenchymal hemorrhage. He is noted to the ICU for close monitoring. The patient denies any symptoms of nausea, vomiting, blurry vision, visual changes, weakness, numbness. His only symptom is headache. Review of systems is otherwise negative. CBC/BMP: 09/19/17 0410 09/19/17 0410 Significant Findings Laboratory Tests Test 09/18/17 13:20 09/18/17 14:00 09/19/17 04:10 Red Blood Count 4.02 MIL/MM3 (4.50-5.90) 3.64 MIL/MM3 (4.50-5.90) Red Cell Distribution Width 18.7 % (11.6-17.2) 18.9 % (11.6-17.2) Platelet Count 811 TH/MM3 (150-450) 711 TH/MM3 (150-450) Monocytes (%) (Auto) 8.2 % (0.0-8.0) Eosinophils (%) (Auto) 4.2 % (0.0-4.0) Carbon Dioxide Level 32.8 MEQ/L (21.0-32.0) Estimat Glomerular Filtration Rate 84 ML/MIN (>89) Troponin I LESS THAN 0.02 NG/ML Urine Mucus FEW /lpf (OCC) Hemoglobin 12.1 GM/DL (13.0-17.0) Hematocrit 35.9 % (39.0-51.0) Calcium Level 8.1 MG/DL (8.5-10.1) Chloride Level 108 MEQ/L (98-107) Imaging Last Impressions Head CT 09/19/17 0500 Signed Impressions: Service Date/Time: Tuesday, September 19, 2017 05:05 - CONCLUSION: Tiny left frontal parenchymal bleed is not visualized on the current study. Antwan Cheng MD Cervical Spine CT 09/18/17 1259 Signed Impressions: Service Date/Time: Monday, September 18, 2017 14:24 - CONCLUSION: 1. No acute bony fracture. 2. Stable CT scan of the cervical spine compared to the prior examination. Guero Carrillo MD Hospital Course Hospital Course: This is an 86-year-old male with no significant past medical history who presents after a mechanical fall. He was trying to move his recliner and slipped and fell and hit his head. He denies any symptoms other than headache. He does state that he had a prior brain bleed a year ago for which she was admitted to the ICU. In the emergency department CAT scan of head was notable for a very tiny traumatic intraparenchymal hemorrhage. He is noted to the ICU for close monitoring. The patient denies any symptoms of nausea, vomiting, blurry vision, visual changes, weakness, numbness. His only symptom is headache. Review of systems is otherwise negative. Subjective: 09/19: denies complaints. tolerated diet. PT recommended outpatient PT with home health. ROS negative. headache improved. Pt Condition on Discharge: Good Discharge Disposition: Discharge Home Discharge Instructions DIET: Follow Instructions for: As Tolerated, No Restrictions Activities you can perform: Regular-No Restrictions Activities to Avoid: Strenuous Activity Good Javed MD Sep 19, 2017 09:46
--- NOTE | 2017-09-19 10:12 | HHI.FF ---
Face to Face Verification Diagnosis: (1) Intraparenchymal hemorrhage of brain (2) Near syncope (3) ICH (intracerebral hemorrhage) (4) Impaired mobility and ADLs (5) Subdural hemorrhage (6) Impaired cognition Physical Therapy Order: Evaluate and Treat, Improve ambulation, Strength and gait training Occupational Therapy Order: Evaluate and Treat, Improve ADL, Gross motor coordination, Fine motor coordination Home Health Nursing Order: Nursing assessment with vital signs Home Health Aide Order: To Assist In: Bathing and personal care, veneer sorter and meal prep I have seen patient [place] Avril Larsen on 09/19/17. My clinical findings support the need for the requested home health care services because: Deconditioned w/ increased weakness Med compliance is questionable High risk of falls I certify that my clinical findings support that this patient is homebound because: Impaired cognitive ability/safety Unsteady gait/balance Enrique Vee DO Sep 19, 2017 10:12
--- NOTE | 2017-09-19 11:34 | HHI.NSPN ---
History Interval History Mr Larsen is an 86-year-old otherwise healthy male who presents following a ground-level fall. Neurologically the patient is intact. He has a scalp laceration that has been primarily repaired. He has a punctate 2 mm intracerebral hemorrhage involving the left frontal supplemental motor cortex. This is asymptomatic. Given the small size, we do not feel that he requires any antiepileptic or intervention. We recommend a repeat head CT in 24 hours. If there is resolution of the hemorrhage, he can be discharged following PT/OT assessment. 09/19 patient denies any headache. He is anxious to go home. Exam Results Vital Signs Date Time Temp Pulse Resp B/P (MAP) Pulse Ox O2 Delivery O2 Flow Rate FiO2 09/19/17 10:12 98 21 09/19/17 10:00 63 09/19/17 08:00 98.0 22 162/74 (103) 09/18/17 17:54 Room Air Intake and Output 09/19/17 09/19/17 09/20/17 08:00 16:00 00:00 Intake Total 1085 ml Output Total 875 ml Balance 210 ml Physical Examination GENERAL: This is a well-nourished, well-developed patient, in no apparent distress. HEENT: Head is normocephalic. There is a laceration to the parietal vertex. Loyda are in place. There is surrounding erythema and dried blood. Neck: Supple. No tenderness to palpation. No step-offs. CV: Regular rate Pulm: Symmetric expansion. Breath sounds bilaterally. GI: Abdomen is soft, nontender nondistended Extremity: No edema Neuro: Patient is alert and oriented 3. Speech is clear, appropriate, non- aphasic. He is a good historian. Cranial nerves II through XII are grossly intact. Motor strength testing reveal full strength 5/5 to all muscle groups tested. Sensation is grossly intact to light touch throughout. Deep tendon reflexes are 2+ at the patella. No clonus at the ankles. No pronator drift. Lab, Micro, Other Results Allergies Coded Allergies Type Severity Reaction Last Updated Verified No Known Allergies 06/14/16 No Recent Impressions Head CT 09/19/17 0500 Signed Impressions: Service Date/Time: Tuesday, September 19, 2017 05:05 - CONCLUSION: Tiny left frontal parenchymal bleed is not visualized on the current study. Antwan Cheng MD Head CT 09/18/17 1259 Signed Impressions: Service Date/Time: Monday, September 18, 2017 14:23 - CONCLUSION: 1. There appears to be a tiny punctate hemorrhagic contusion high along the left cerebral vertex. 2. Diffuse bilateral cortical atrophy and chronic white matter changes. Guero Carrillo MD Cervical Spine CT 09/18/17 1259 Signed Impressions: Service Date/Time: Monday, September 18, 2017 14:24 - CONCLUSION: 1. No acute bony fracture. 2. Stable CT scan of the cervical spine compared to the prior examination. Guero Carrillo MD 09/17/17 09/17/17 09/18/17 09/18/17 09/19/17 09/19/17 06:00 18:00 06:00 18:00 06:00 18:00 Intake Total 1000 ml 1085 ml Output Total 875 ml Balance 1000 ml 210 ml Intake Oral 0 ml IV Total 1000 ml 1085 ml Output Urine Total 875 ml # Bowel Movements 0 Laboratory Tests Test 09/18/17 13:20 09/18/17 14:00 09/19/17 04:10 White Blood Count 9.6 TH/MM3 10.1 TH/MM3 Red Blood Count 4.02 MIL/MM3 3.64 MIL/MM3 Hemoglobin 13.2 GM/DL 12.1 GM/DL Hematocrit 39.4 % 35.9 % Mean Corpuscular Volume 98.2 FL 98.7 FL Mean Corpuscular Hemoglobin 32.8 PG 33.1 PG Mean Corpuscular Hemoglobin Concent 33.5 % 33.6 % Red Cell Distribution Width 18.7 % 18.9 % Platelet Count 811 TH/MM3 711 TH/MM3 Mean Platelet Volume 8.3 FL 8.7 FL Neutrophils (%) (Auto) 61.9 % Lymphocytes (%) (Auto) 25.2 % Monocytes (%) (Auto) 8.2 % Eosinophils (%) (Auto) 4.2 % Basophils (%) (Auto) 0.5 % Neutrophils # (Auto) 6.0 TH/MM3 Lymphocytes # (Auto) 2.4 TH/MM3 Monocytes # (Auto) 0.8 TH/MM3 Eosinophils # (Auto) 0.4 TH/MM3 Basophils # (Auto) 0.0 TH/MM3 CBC Comment DIFF FINAL Differential Comment Prothrombin Time 11.0 SEC Prothromb Time International Ratio 1.1 RATIO Activated Partial Thromboplast Time 25.1 SEC Blood Urea Nitrogen 12 MG/DL 10 MG/DL Creatinine 0.86 MG/DL 0.69 MG/DL Random Glucose 85 MG/DL 83 MG/DL Calcium Level 9.1 MG/DL 8.1 MG/DL Sodium Level 140 MEQ/L 143 MEQ/L Potassium Level 4.0 MEQ/L 3.8 MEQ/L Chloride Level 102 MEQ/L 108 MEQ/L Carbon Dioxide Level 32.8 MEQ/L 28.5 MEQ/L Anion Gap 5 MEQ/L 7 MEQ/L Estimat Glomerular Filtration Rate 84 ML/MIN 109 ML/MIN Total Creatine Kinase 43 U/L Troponin I LESS THAN 0.02 NG/ML Urine Color LIGHT-YELLOW Urine Turbidity CLEAR Urine pH 8.0 Urine Specific [place] 1.007 Urine Protein NEG mg/dL Urine Glucose (UA) NEG mg/dL Urine Ketones NEG mg/dL Urine Occult Blood NEG Urine Nitrite NEG Urine Bilirubin NEG Urine Urobilinogen LESS THAN 2.0 MG/DL Urine Leukocyte Esterase NEG Urine RBC LESS THAN 1 /hpf Urine WBC LESS THAN 1 /hpf Urine Mucus FEW /lpf Microscopic Urinalysis Comment CULT NOT INDICATED Orders Procedure Category Date Status Time Electrocardiogram CAV 09/18/17 Complete 12:59 Basic Metabolic Panel LAB 09/18/17 Complete (Bmp) 12:59 Complete Blood Count LAB 09/18/17 Complete With Diff 12:59 Ckmb (Isoenzyme) LAB 09/18/17 Complete Profile 12:59 Troponin I LAB 09/18/17 Complete 12:59 Act Partial Throm LAB 09/18/17 Complete Time (Ptt) 12:59 Prothrombin Time / LAB 09/18/17 Complete Inr (Pt) 12:59 Urinalysis - C+S If LAB 09/18/17 Complete Indicated 12:59 Ct Brain W/O Iv RADCT 09/18/17 Resulted Contrast(Rout) 12:59 Ct Cerv Spine W/O RADCT 09/18/17 Resulted Contrast 12:59 Ecg Monitoring TX 09/18/17 Transmitted 12:59 Iv Access TX 09/18/17 Transmitted Insert/Monitor 12:59 Oximetry TX 09/18/17 Transmitted 12:59 Sodium Chloride 0.9% MED 09/18/17 In Process Flush (Ns Flush) 13:00 Sodium Chlor 0.9% MED 09/18/17 Complete 1000 Ml Inj (Ns 1000 M 12:59 Admit Order (Ed Use ADMITTING 09/18/17 Transmitted Only) 15:41 Consult Neurosurgery CONS 09/18/17 Transmitted Cbc No Diff, Includes LAB 09/19/17 Complete Plts 05:00 Cbc No Diff, Includes LAB 09/20/17 Verified Plts 05:00 Cbc No Diff, Includes LAB 09/21/17 Verified Plts 05:00 Cbc No Diff, Includes LAB 09/22/17 Verified Plts 05:00 Cbc No Diff, Includes LAB 09/23/17 Verified Plts 05:00 Cbc No Diff, Includes LAB 09/24/17 Verified Plts 05:00 Cbc No Diff, Includes LAB 09/25/17 Verified Plts 05:00 Basic Metabolic Panel LAB 09/19/17 Complete (Bmp) 05:00 Basic Metabolic Panel LAB 09/20/17 Verified (Bmp) 05:00 Basic Metabolic Panel LAB 09/21/17 Verified (Bmp) 05:00 Basic Metabolic Panel LAB 09/22/17 Verified (Bmp) 05:00 Basic Metabolic Panel LAB 09/23/17 Verified (Bmp) 05:00 Basic Metabolic Panel LAB 09/24/17 Verified (Bmp) 05:00 Basic Metabolic Panel LAB 09/25/17 Verified (Bmp) 05:00 Labetalol Inj MED 09/18/17 In Process (Trandate Inj) 15:45 Hydralazine Inj MED 09/18/17 In Process (Apresoline Inj) 15:45 Inpatient ADMITTING 09/18/17 Transmitted Certification 15:44 Resp Ezpap/Pep Therapy RSP 09/18/17 Logged 15:44 RESP RSP 09/18/17 Logged Acapella/Pep/Chest 15:44 Resp Incentive RSP 09/18/17 Logged Spirometry 15:44 Nursing Bedside SAAR 09/18/17 In Process Swallow Assess 15:44 ^ Other Nursing Orders SARA 09/18/17 In Process 15:44 ^ Other Nursing Orders SARA 09/18/17 In Process 15:44 ^ Other Nursing Orders SARA 09/18/17 In Process 15:44 Magnesium Oxide MED 09/18/17 In Process (Mag-Ox) 15:45 Magnesium Sulfate Inj MED 09/18/17 In Process (Magnesium Sulfate 15:45 Magnesium Sulfate Inj MED 09/18/17 In Process (Magnesium Sulfate 15:45 Potassium Chlor 20 MED 09/18/17 In Process Meq Premix (Kcl 20 Me 15:45 Potassium Chlor 20 MED 09/18/17 In Process Meq Premix (Kcl 20 Me 15:45 Potassium Chlor 40 MED 09/18/17 In Process Meq Premix (Kcl 40 Me 15:45 Potassium Chlor 40 MED 09/18/17 In Process Meq Premix (Kcl 40 Me 15:45 Potassium Phosphate MED 09/18/17 In Process (K-Phos) 15:45 Potassium Phosphate MED 09/18/17 In Process (K-Phos) 15:45 Potassium Phosphate MED 09/18/17 In Process Inj (Potassium Phosp 15:45 Sodium Phosphate Inj MED 09/18/17 In Process (Sodium Phosphate I 15:45 ^ Medication Admin SARA 09/18/17 In Process Instruction 15:[address]: Other [facility] 09/18/17 In Process 15:44 Bedside Glucose [facility] 09/18/17 In Process 15:44 Blood Glucose Goal [facility] 09/18/17 In Process (Criteria) 15:44 Hypoglycemia 51 - 69 SARA 09/18/17 In Process Mg/Dl 15:44 Hypoglycemia 50 Mg/Dl [facility]ARA 09/18/17 In Process Or < 15:[address]: Rex [facility] 09/18/17 In Process 15:44 Dextrose 50% In [place] MED 09/18/17 In Process (Vial) Inj (D50w (Vi 15:45 Insulin Human Reg MED 09/18/17 In Process Supp Scale (Novolin R 17:00 Bisacodyl Supp MED 09/19/17 In Process (Dulcolax Supp) 09:00 Polyethylene Glycol MED 09/18/17 In Process (Miralax) 21:00 Lactulose Liq MED 09/18/17 In Process (Lactulose Liq) 21:00 Docusate Sodium-Senna MED 09/18/17 In Process (Leisa-Colace) 21:00 Neuro Checks SARA 09/18/17 In Process 15:44 Albuterol-Ipratropium MED 09/18/17 In Process Neb (Duoneb Neb) 15:45 Code Status CODE 09/18/17 Transmitted 15:44 Vital Signs (Adult) SARA 09/18/17 In Process 15:44 Activity Bed Rest SARA 09/18/17 In Process 15:44 Elevate Head Of Bed SARA 09/18/17 In Process 15:44 Intake + Output SARA 09/18/17 In Process 15:44 Sodium Chlor 0.9% MED 09/18/17 Complete 1000 Ml Inj (Ns 1000 M 15:44 Acetaminophen MED 09/18/17 In Process (Tylenol) 15:45 Ondansetron Inj MED 09/18/17 In Process (Zofran Inj) 15:45 Visual Presentation Manager / SARA 09/18/17 In Process Telemetry 15:44 Scd Bilateral/Knee SARA 09/18/17 In Process High 15:44 Pharmacologic SARA 09/18/17 In Process Contraindication 15:44 ^ Initiate Protocol SARA 09/18/17 In Process 15:44 Instruction SARA 09/18/17 In Process 15:44 Misc Nursing MED 09/18/17 In Process Information 15:45 Chlorhexidine 2% MED 09/19/17 In Process Cloth (Chlorhexidine 04:00 Chlorhexidine 2% MED 09/18/17 In Process Cloth (Chlorhexidine 15:45 Mrsa Pcr Surveillance LAB 09/18/17 In Process 15:44 (Hub Use Only)Inp Phy CONS 09/18/17 Transmitted Cons/Ref Hydralazine MED 09/18/17 In Process (Apresoline) 19:30 Ct Brain W/O Iv RADCT 09/19/17 Resulted Contrast(Rout) 05:00 Diet Regular Basic DIET 09/19/17 Transmitted Breakfast Consult Pt Eval & PT 09/19/17 Logged Treat 07:09 Attending Discharge DISCHARGE 09/19/17 Transmitted Order Vital Signs Date Time Temp Pulse Resp B/P (MAP) Pulse Ox O2 Delivery O2 Flow Rate FiO2 09/19/17 10:12 98 21 09/19/17 10:00 63 09/19/17 08:00 98.0 58 22 162/74 (103) 95 09/19/17 08:00 58 09/19/17 06:00 60 09/19/17 04:00 98.2 66 16 161/72 (101) 95 09/19/17 04:00 66 09/19/17 02:00 58 09/19/17 00:00 98.1 57 18 133/62 (85) 94 09/19/17 00:00 60 09/18/17 22:00 60 09/18/17 21:22 96 21 09/18/17 20:00 62 09/18/17 20:00 98.0 62 18 146/65 (92) 96 09/18/17 18:53 78 18 181/82 (115) 98 09/18/17 17:54 78 18 178/71 (106) 98 Room Air 09/18/17 16:10 98 Room Air 09/18/17 12:39 98.8 70 16 141/77 (98) 99 Medical Decision Making Impression and Plan Mr Larsen is an 86-year-old otherwise healthy male who presents following a ground-level fall. Neurologically the patient is intact. He has a scalp laceration that has been primarily repaired. He has a punctate 2 mm intracerebral hemorrhage involving the left frontal supplemental motor cortex. This is asymptomatic. Given the small size, we do not feel that he requires any antiepileptic or intervention. We recommend a repeat head CT in 24 hours. If there is resolution of the hemorrhage, he can be discharged following PT/OT assessment. HD2 Neuro: Neurologically intact. Repeat head CT show ocean of small intracerebral hemorrhage. Patient stable for discharge from a neurologic standpoint. Jeremy Cortez MD Sep 19, 2017 11:33
--- NOTE | 2017-09-19 13:00 | EKG ---
Date Performed: 09/18/2017 Time Performed: 14:04:37 PTAGE: 86 years EKG: Sinus rhythm NORMAL ECG PREVIOUS TRACING : 06/14/2016 10.25 Since previous tracing, PVCs no longer present. DOCTOR: Sj Peraza Interpretating Date/Time 09/19/2017 12:59:21
== END 2017-09-19 12:24 | disposition home health service (06) | DRG 87 ==
LOC: NEPE 12:34 → NEDA 15:44 → N03B 18:41
PROVIDERS: ADMIT Internal Medicine Critical Care Medicine; ATTEND Internal Medicine Critical Care Medicine
PROC: 0HQ0XZZ Repair Scalp Skin, External Approach (ICD-10-PCS; principal; 2017-09-18)
DX: S06.350A Traumatic hemorrhage of left cerebrum without loss of consciousness, initial encounter (principal); S01.01XA Laceration without foreign body of scalp, initial encounter; W01.0XXA Fall on same level from slipping, tripping and stumbling without subsequent striking against object, initial encounter; Y93.89 Activity, other specified; H35.30 Unspecified macular degeneration; M19.90 Unspecified osteoarthritis, unspecified site
CPT/HCPCS: 12002; 70450; 72125; 80048; 81001; 82550; 82948; 84484; 85025; 85027; 85610; 85730; 93005; 94150; 94640; 94667; 96360; J7030